=== PATIENT | male | born 1995 | race Caucasian/White ===

== ENCOUNTER 2017-09-03 22:07 | Emergency (ER) | payer MEDICAID ==
[~2017-09-03] VITALS: Ht 172.7 cm; Wt 60.0 kg
[2017-09-03] MEDS ORDERED: PROMETHAZINE 25 MG/ML, 1ML IM ONE (22:30)
[2017-09-03] MEDS ORDERED: LORazepam 2 MG/ML, 1ML IM PRN (22:30)
[2017-09-03] MEDS ORDERED: ZIPRASIDONE 20 MG INJ IM ONE ×2 (22:30→22:34)
[2017-09-03] MEDS ORDERED: PROMETHAZINE 25 MG/ML, 1ML ONE (22:33)
[2017-09-03] MEDS ORDERED: FLUO40CA2 PO (23:04)
[2017-09-03] MEDS ORDERED: QUET400T6 PO (23:04)
== END 2017-09-04 04:24 | disposition home or self-care (01) ==
LOC: ED 23:59
DX: F10.121 Alcohol abuse with intoxication delirium (principal); F16.121 Hallucinogen abuse with intoxication with delirium; F16.122 Hallucinogen abuse with intoxication with perceptual disturbance; G92 Toxic encephalopathy
CPT/HCPCS: 96372; 99291; J2550; J3486

== ENCOUNTER 2019-03-11 20:25 | Emergency (ER) | payer MEDICAID ==
[~2019-03-11 20:25] MED LIST: FLUO40CA2 PO; HALO5TAB5 PO; QUET400T7 PO
[2019-03-11 20:32] VITALS: BP 134/84
--- NOTE | 2019-03-11 20:37 | NUR ---
BIB [facility]. PER [facility] PT STATE HE IS SUICIDAL. PT RELEASED FROM [facility] AT 1100 TODAY, THEN USED ABOUT 2GM OF METH WITH MARIJUANA AT 1400. 2 BAGS OF BELONGINGS COLLECTED AND ROOM SECURE. AT BEDSIDE. AWAITING ORDERS AT THIS TIME.
[2019-03-11] MEDS ORDERED: QUETIAPINE 100MG TABLET ONE (20:43)
[2019-03-11] MEDS ORDERED: HALOPERIDOL 5 MG/ML ONE (20:43)
[2019-03-11] MEDS ORDERED: OLANZAPINE 10 MG TABLET ONE (20:43)
--- NOTE | 2019-03-11 20:51 | NUR ---
MEDS ADMIN PER MAR. MARTÍNEZ TO DC PT SO PT CAN START HIS MEDS AFTER BEING DC FROM [facility], AND CONTINUE WITH THAT POC.
[2019-03-11] MEDS ORDERED: HALOPERIDOL 5 MG/ML IM ONE (21:00)
[2019-03-11] MEDS ORDERED: OLANZAPINE 10 MG TABLET PO ONE (21:00)
[2019-03-11] MEDS ORDERED: QUETIAPINE 100MG TABLET PO ONE (21:00)
== END 2019-03-11 21:05 | disposition home or self-care (01) ==
LOC: ED 20:59
DX: R45.851 Suicidal ideations (principal); F15.10 Other stimulant abuse, uncomplicated; Z72.9 Problem related to lifestyle, unspecified
CPT/HCPCS: 96372; 99284; J1630; 99283

== ENCOUNTER 2019-10-11 12:17 | Inpatient (IN) | payer MEDICAID ==
[~2019-10-11] VITALS: Ht 172.7 cm; Wt 57.7 kg
[2019-10-11] MEDS ORDERED: ACETAMINOPHEN 325 MG TABLET PO PRN (14:00)
[2019-10-11] MEDS ORDERED: DOCUSATE 100 MG CAPSULE PO PRN (14:00)
[2019-10-11 15:11] VITALS: BP 123/73
[2019-10-11 17:25] LABS: MICROSCOPIC NOT IND
[2019-10-11] MEDS: LORazepam 1MG TABLET PO PRN (17:41)
[2019-10-11 19:37] VITALS: BP 97/59
[2019-10-12 07:25] VITALS: BP 110/63
[2019-10-12 08:12] LABS: CHOL/HDL RATIO 4.5; FREE T4 (FREE THYROXINE) 1.2 ng/dL (0.76-1.46); LDL/HDL RATIO 2.6 (0.5-3.0)
[2019-10-12] MEDS: NICOTINE 21 MG/24 HR PATCH.TD24 TD SCH (08:16)
[2019-10-12] MEDS: LORazepam 1MG TABLET PO PRN ×2 (09:12→17:25)
[2019-10-12] MEDS: QUETIAPINE 100MG TABLET PO SCH (20:17)
[2019-10-12] MEDS: FLUPHENAZINE 2.5 MG TABLET PO SCH (20:17)
[2019-10-12 20:23] VITALS: BP 116/82
[2019-10-13 07:50] VITALS: BP 92/51
[2019-10-13] MEDS: NICOTINE 21 MG/24 HR PATCH.TD24 TD SCH (08:47)
[2019-10-13] MEDS ORDERED: FLUP2.5T3 PO (15:15)
[2019-10-13] MEDS ORDERED: QUET100T PO (15:15)
[2019-10-13] MEDS: LORazepam 1MG TABLET PO PRN (18:14)
[2019-10-13 19:10] VITALS: BP 113/79
[2019-10-13] MEDS: QUETIAPINE 100MG TABLET PO SCH (20:32)
[2019-10-13] MEDS: FLUPHENAZINE 2.5 MG TABLET PO SCH (20:32)
[2019-10-14 07:19] VITALS: BP 110/66
[2019-10-14] MEDS: NICOTINE 21 MG/24 HR PATCH.TD24 TD SCH (08:48)
[2019-10-14] MEDS: LORazepam 1MG TABLET PO PRN (11:46)
== END 2019-10-14 12:22 | disposition home or self-care (01) | DRG 750 ==
LOC: 3E 15:15
PROVIDERS: ADMIT Psychiatry & Neurology Psychosomatic Medicine; ATTEND Psychiatry & Neurology Psychosomatic Medicine
DX: F25.0 Schizoaffective disorder, bipolar type (principal); F15.20 Other stimulant dependence, uncomplicated; R45.851 Suicidal ideations; E86.0 Dehydration; F17.200 Nicotine dependence, unspecified, uncomplicated; R45.850 Homicidal ideations; G47.00 Insomnia, unspecified; Z91.19 Patient's noncompliance with other medical treatment and regimen; Z91.5 Personal history of self-harm; Z88.8 Allergy status to other drugs, medicaments and biological substances
CPT/HCPCS: 36415; 80061; 80074; 81003; 84439; 84443; 86592; 86706; 86708; 87806; 93005; G0475

== ENCOUNTER 2020-04-26 18:40 | Inpatient (IN) | payer MEDICAID ==
[~2020-04-26] VITALS: Ht 172.7 cm; Wt 60.1 kg
[~2020-04-26 18:40] MED LIST changes: +FLUP2.5T3 PO; +QUET100T PO
[2020-04-26] MEDS ORDERED: ONDANSETRON ODT 4 MG PO PRN (20:00)
[2020-04-26] MEDS ORDERED: ACETAMINOPHEN 325 MG TABLET PO PRN (20:00)
[2020-04-26] MEDS: BUSPIRONE 10 MG TABLET PO SCH (21:57)
[2020-04-26] MEDS: QUETIAPINE 100MG TABLET PO SCH (21:57)
[2020-04-26] MEDS: PLEASE ENTER HEIGHT AND WEIGHT MC SCH (22:13)
[2020-04-26 23:00] VITALS: BP 101/87
[2020-04-26 23:41] VITALS: BP 101/56
[2020-04-27] MEDS: PLEASE ENTER HEIGHT AND WEIGHT MC SCH (04:31)
[2020-04-27 07:32] VITALS: BP 104/66
[2020-04-27 08:46] LABS: FREE T4 (FREE THYROXINE) 1.05 ng/dL (0.76-1.46); LDL/HDL RATIO 0.7 (0.5-3.0)
[2020-04-27] MEDS: BUSPIRONE 10 MG TABLET PO SCH ×3 (09:00→21:01)
[2020-04-27] MEDS: QUETIAPINE 100MG TABLET PO SCH ×2 (09:00→21:01)
[2020-04-27] MEDS ORDERED: QUETIAPINE 100MG TABLET PO SCH (09:00)
[2020-04-27 12:38] LABS: MICROSCOPIC NOT IND
[2020-04-27 19:39] VITALS: BP 108/69
[2020-04-27] MEDS ORDERED: DOCUSATE 100 MG CAPSULE PO SCH (21:00)
[2020-04-27] MEDS: DOCUSATE 100 MG CAPSULE PO PRN (21:09)
[2020-04-28 07:22] VITALS: BP 98/61
[2020-04-28] MEDS: QUETIAPINE 100MG TABLET PO SCH ×2 (08:56→20:17)
[2020-04-28] MEDS: BUSPIRONE 10 MG TABLET PO SCH ×3 (08:56→20:17)
[2020-04-28] MEDS: DOCUSATE 100 MG CAPSULE PO PRN (08:57)
[2020-04-28] MEDS ORDERED: QUET100T PO (16:50)
[2020-04-28] MEDS ORDERED: BUSP10TA PO (16:50)
[2020-04-28 19:45] VITALS: BP 107/62
[2020-04-28 20:13] VITALS: BP 126/80
[2020-04-29 07:08] VITALS: BP 105/60
[2020-04-29] MEDS: BUSPIRONE 10 MG TABLET PO SCH ×2 (08:36→08:39)
[2020-04-29] MEDS: QUETIAPINE 100MG TABLET PO SCH ×2 (08:37→08:40)
== END 2020-04-29 11:50 | disposition home or self-care (01) | DRG 750 ==
LOC: 3E 20:24
PROVIDERS: ADMIT Psychiatry & Neurology Psychosomatic Medicine; ATTEND Psychiatry & Neurology Psychosomatic Medicine
DX: F25.0 Schizoaffective disorder, bipolar type (principal); F41.1 Generalized anxiety disorder; F17.200 Nicotine dependence, unspecified, uncomplicated; F15.20 Other stimulant dependence, uncomplicated; Z79.899 Other long term (current) drug therapy; Z91.19 Patient's noncompliance with other medical treatment and regimen
CPT/HCPCS: 36415; 71045; 80061; 81003; 84439; 84443; 93005

== ENCOUNTER 2020-05-27 23:29 | Emergency (ER) | payer MEDICAID ==
[~2020-05-27] VITALS: Ht 167.6 cm; Wt 65.0 kg
[~2020-05-27 23:29] MED LIST changes: +BUSP10TA PO
--- NOTE | 2020-05-27 23:50 | NUR ---
ANIYAH FROM [facility] ON [facility] FOR ACUTE HI/SI. PT TOLD EMS HE WANTS TO "PUNCH A DOCTOR OR SOMETHING SO I CAN GO TO RESIDENTIAL". PT WITH HX OF SCHIZOPRENIA/BIPOLAR, AND MULTIPLE DRUG USE INCLUDING METH AND HEROIN. PT WHISPERING UPON ASSESSMENT ASKING FOR [place] [employer]. PT WHISPERING THAT HE HAS THOUGHTS OF "WALKING DOWN THE STREET STABBING PEOPLE". PT REFUSING TO GO INTO DETAIL WITH THIS RN, STATING HE KNOWS WHO HE NEEDS TO TALK TO AND HE ONLY WANTS TO TALK TO ONE PERSON. PT COOPERATIVE WITH CHANGING INTO HOSPITAL GOWN AND PLACING CLOTHES IN BAG. PT DISCHARGED FROM [facility] 5 DAYS AGO. PT STATES "I WILL NOT HIT WOMEN, EVEN WHEN IM HIGH I STILL KNOW BETTER. YOU CAN PUT ME IN RESTRAINTS IF YOU DONT TRUST ME".
--- NOTE | 2020-05-28 | NUR ---
PER ERP IMTIAZ PT TOLD HIM HE WANTS TO GO BACK TO [place] SINCE THAT IS WHERE HIS GF AND FAMILY ARE AND HE DOESNT FEEL LIKE HE WOULD HURT ANYONE IF HE WAS BACK THERE.
--- NOTE | 2020-05-28 00:09 | NUR ---
SITTER AT [facility]
--- NOTE | 2020-05-28 00:20 | NUR ---
PT REQUESTING TO GO [facility], STATING THEY HAVE HELPED HIM THERE BEFORE AND "I FEEL LIKE I DO WELL THERE". PT STATES "I KNOW I WOULD NEED TO BE SOBER AFTER MY 3 DAY CLEANSE". ERP UPDATED ABOUT PTS REQUEST, ERP STATING IT IS NOT APPROPRIATE TO KEEP PT HERE FOR 3 DAYS SINCE HE IS NOT NEEDING LIFE SAVING INTERVENTIONS. PT UPSET AND NOW ASKING TO GO TO [facility] STATING THAT HE MISPOKE AND HE REALLY MEANT [facility] IS WHERE HE WANTED TO GO. PT OFFERED FOR US TO CALL HIS SPONSOR JIMBO FOR RIDE IN AM, PT STATING WE CAN ONLY CALL AFTER 0730 AM AND THAT JIMBO IS IN [place].
--- NOTE | 2020-05-28 00:36 | NUR ---
JIMBO SPONSOR [phone]
--- NOTE | 2020-05-28 01:20 | NUR ---
pt stating "its not the drugs that are my problem" and then will also state he needs to get sober for his sponser. patient contradicting himself multiple times and when asked for clarafication pt still gives two different stories
--- NOTE | 2020-05-28 03:06 | NUR ---
REPORT GIVEN TO CRISTOPHER GORMAN
--- NOTE | 2020-05-28 03:10 | NUR ---
PT ASLEEP IN [place], RESP EVEN/UNLABORED, SAFETY MEASURES IN PLACE
--- NOTE | 2020-05-28 04:18 | NUR ---
PT ASLEEP IN [facility] AT THIS TIME, RESP EVEN/UNLABORED, SAFETY PRECAUTIONS IN PLACE
[2020-05-28 04:33] VITALS: BP 109/75
--- NOTE | 2020-05-28 04:34 | NUR ---
SPOKE WITH PATIENT, PT VERY RESTLESS AND FIGITY, PT AGREEABLE FOR VITALS AT THIS TIME
== END 2020-05-28 05:55 | disposition home or self-care (01) ==
LOC: ED 05-28 05:49
DX: F25.0 Schizoaffective disorder, bipolar type (principal); F15.129 Other stimulant abuse with intoxication, unspecified; F22 Delusional disorders; F41.9 Anxiety disorder, unspecified; Z72.9 Problem related to lifestyle, unspecified
CPT/HCPCS: 99283